=== PATIENT | female | born 1980 | race Asian ===

== ENCOUNTER 2017-04-06 22:16 | Inpatient (IN) | payer BC ==
[2017-04-06] MEDS ORDERED: Sodium Chloride 0.9% 2.5 ML Syringe FLUSH PRN (23:20)
[2017-04-06] MEDS ORDERED: ceFAZolin 1 GM in Premix Bag 1 BAG IV ONE (23:20)
[2017-04-06] MEDS ORDERED: Sodium Chloride 0.9% 10 ML Syringe FLUSH PRN (23:20)
[2017-04-06] MEDS ORDERED: Oxytocin/0.9 % Sodium Chloride 30 UNIT/500 ML BAG IV SCH (23:30)
[2017-04-06] MEDS ORDERED: Citric Acid/Sodium Citrate Solution 30 ML Cup PO SCH (23:30)
[2017-04-06] MEDS: Lactated Ringers 1,000 ML IV SCH (23:35)
[2017-04-07] MEDS: Lactated Ringers 1,000 ML IV SCH ×3 (00:20→10:49)
[2017-04-07] MEDS ORDERED: ePHEDrine 50 MG/ML SDV ONE (00:27)
[2017-04-07] MEDS ORDERED: Ondansetron 4 MG/2 ML SDV ONE (00:27)
[2017-04-07] MEDS ORDERED: Morphine PF 1 MG/ML Amp ONE (00:30)
[2017-04-07] MEDS ORDERED: Oxytocin/0.9 % Sodium Chloride 30 UNIT/500 ML BAG ONE (00:48)
[2017-04-07] MEDS ORDERED: Octyl 2-Cyanoacrylate 1 Tube ONE (01:33)
[2017-04-07] MEDS ORDERED: Ondansetron 4 MG/2 ML SDV IV PRN (01:58)
[2017-04-07] MEDS ORDERED: Acetaminophen/oxyCODONE 325-5 MG Tab PO PRN ×2 (01:58→02:20)
[2017-04-07] MEDS ORDERED: Bisacodyl 10 MG Supp RECTAL PRN (01:58)
[2017-04-07] MEDS ORDERED: diphenhydrAMINE 50 MG/ML SDV IVPUSH PRN ×2 (01:58→02:18)
[2017-04-07] MEDS ORDERED: Lanolin 100% Cream 7 GM Tube TOP PRN (01:58)
--- NOTE | 2017-04-07 01:58 | PCM.OPNOTE ---
- General Post-Op/Procedure Note Date of Surgery/Procedure: 04/07/17 Operative Procedure(s): repeat low transverse Findings: liveborn male 8/9 weight 3210 grams, large keloid scar removed, dense adhesions of the fascia. Pre Op Diagnosis: 39 weeks previous SROM Post-Op Diagnosis: Same Anesthesia Technique: Spinal Primary Surgeon: Kassy Patterson Anesthesia Provider: Sharla Higgins Radi Meat Clerk: Luz Marina Araiza Pathology: none Fluid Replacement, Intraop: 1,000 EBL in mLs: 600 Complications: None Known Condition: Good Free Text/Narrative:: Intake & Output 04/06/17 04/06/17 04/07/17 14:59 22:59 06:59 Output Total 200 Balance -200
[2017-04-07] MEDS ORDERED: Naloxone 0.4 MG/ML Syringe IVPUSH PRN (02:18)
[2017-04-07] MEDS ORDERED: fentaNYL 100 MCG/2 ML SDV IVPUSH PRN (02:20)
[2017-04-07] MEDS: Ketorolac 30 MG/ML SDV IVPUSH SCH ×4 (02:24→20:05)
--- NOTE | 2017-04-07 02:33 | PCM.POSTAN ---
POST ANESTHESIA ASSESSMENT - MENTAL STATUS Mental Status: Alert, Oriented - RESPIRATORY Respiratory Status: Respiratory Rate WNL, Airway Patent, O2 Saturation Stable - CARDIOVASCULAR CV Status: Pulse Rate WNL, Blood Pressure Stable - GASTROINTESTINAL GI Status: No Symptoms - PAIN Pain Score: 0 - POST OP HYDRATION Hydration Status: Adequate & Stable
[2017-04-07] MEDS: Nalbuphine 10 MG/1 ML Vial IVPUSH PRN ×2 (03:04→06:13)
--- NOTE | 2017-04-07 07:18 | OR ---
SURGEON: Kassy Patterson M.D. DATE OF PROCEDURE: 04/07/2017 PREOPERATIVE DIAGNOSES: 1. Thirty-nine week intrauterine . 2. Prior delivery, desires repeat. 3. Spontaneous rupture of membranes. POSTOPERATIVE DIAGNOSES: 1. Thirty-nine week intrauterine . 2. Prior delivery, desires repeat. 3. Spontaneous rupture of membranes. PROCEDURE: Repeat low-transverse section. ANESTHESIA: Spinal. ESTIMATED BLOOD LOSS: 600 mL. FLUIDS: 1000 mL crystalloid. FINDINGS: Live-born male, score of 8 and 9, weighing 3210 grams. There was a very large keloid scar that was removed. There was dense adhesions of the fascia to the rectus muscle and subcutaneous tissue. Normal-appearing tubes and ovaries. COMPLICATIONS: None known. DISPOSITION: Stable to recovery. BRIEF HISTORY: This is a 37-year-old female. She is -0-0-1. She presents at 39 weeks' gestation with spontaneous rupture of membranes. Clear fluid. Onset of contractions becoming more intense. Rates her pain at 5/10 to 7/10. Her prior delivery was for breech presentation. This has been uncomplicated. She is actually scheduled for an 8:00 a.m. section on 04/07/2017; however, due to the fact that her membranes have ruptured and she appears to be in active labor, a decision was made to proceed with an earlier section. Risks of were discussed including bleeding, infection; injury to bowel, bladder, blood vessels, ureters, or other organs; risk of thromboembolic event, risk of anesthesia. Understanding all of these risks, she does desire to proceed. DESCRIPTION OF PROCEDURE: With the patient in left tilt position, under adequate spinal analgesia, the abdomen was prepped with chlorhexidine and draped in usual fashion for abdominal surgery. SCDs were in place. Ancef 2 g had been given and an appropriate time- out was held. After documentation of adequate analgesia, the prior cicatrix was excised and the incision was carried through the subcutaneous tissue to the fascia, which was scored transversely in the midline. The fascia was very dense, adherent to the underlying rectus muscle and overlying subcutaneous tissue. I did extensive dissection with the scalpel and then with Espinal scissors and then sharp and blunt dissection to separate the rectus fascia from the rectus muscle. The rectus muscles were then sharply in the midline. A finger was used to enter the peritoneal cavity. There were no adhesions to the anterior abdominal wall. This incision was extended cephalad and caudad using sharp and blunt dissection. The Oj O retractor was then placed into the abdominal cavity. The visceroperitoneum over the lower uterine segment was incised and the bladder flap was pushed down below the field of dissection. A transverse curvilinear incision was made over the lower uterine segment with a scalpel. A finger was used to enter the amniotic cavity. Clear fluid was noted. The incision was extended using blunt dissection. The head was delivered via the uterine incision with fundal pressure without any difficulty, with subsequent delivery of the infant's shoulders and body without any difficulty. It was bulb suctioned by nose and mouth. The cord was clamped x2 and cut. The was handed to Dr. Youssef who was in attendance at delivery. The is a liveborn male, score 8 and 9, weighing 3210 grams. The cord blood was collected from the placenta for cord ABGs as well as routine cord blood sampling. The placenta was then removed by manual extraction. The cervix was opened with a ring forceps. The uterus was cleaned with a dry laparotomy tape. The uterine incision was closed with a running lock suture of 0 Polysorb, followed by an imbricating layer of 0 Polysorb. Pitocin had been given and there was excellent contraction of the uterus. The pelvis was then thoroughly inspected with findings as noted above. The uterine incision was again inspected. It was completely hemostatic. Therefore, the Oj O retractor was removed. A running lock suture was then utilized to reapproximate the rectus muscles in the midline. This was a running mattress suture of 0 Polysorb. The posterior aspect of the fascia was inspected and any areas of bleeding that were noted were cauterized. The fascial incision was closed with a running lock suture of 0 Polysorb. Subcutaneous tissue was copiously irrigated. Due to the extensive scarring, there was a large amount of oozing and careful meticulous cauterization was performed for complete hemostasis. Once complete hemostasis had been established, then the deep subcutaneous tissue was reapproximated with a running suture of 0 Polysorb and the skin was reapproximated with subcuticular suture of 2-0 Polysorb and Dermabond. Final sponge, needle, and instrument counts were reported as correct. There were no known complications. Mother is in recovery in good condition. [place] is in the nursery in good condition. CYNTHIA BENOIT /[id number]
[2017-04-07] MEDS: Docusate Sodium 100 MG Cap PO SCH ×2 (08:18→20:05)
--- NOTE | 2017-04-07 08:20 | PCM.PNPP ---
- General Info Date of Service: 04/07/17 Functional Status: Reports: Pain Controlled, Tolerating Diet, Ambulating, Urinating - Review of Systems General: Denies: Fever, Malaise HEENT: Denies: Headaches Pulmonary: Denies: Shortness of Breath, Pleuritic Chest Pain Cardiovascular: Denies: Chest Pain, Palpitations Gastrointestinal: Denies: Abdominal Pain Genitourinary: Denies: Dysuria, Flank Pain Skin: Reports: No Symptoms Neurological: Reports: No Symptoms Psychiatric: Reports: No Symptoms - General Info Date of Service: 04/07/17 - Patient Data Vital Signs - Most Recent: Last Vital Signs Temp 36.3 C 04/07/17 04:15 Pulse 83 04/07/17 07:00 Resp 16 04/07/17 07:00 BP 128/58 L 04/07/17 07:00 Pulse Ox 98 04/07/17 07:00 Weight - Most Recent: 158 lb I&O - Last 24 Hours: Intake & Output 04/06/17 04/07/17 04/07/17 22:59 06:59 14:59 Intake Total 1150 Output Total 290 Balance 860 Lab Results - Last 24 Hours: Laboratory Results - last 24 hr 04/06/17 04/06/17 04/06/17 Range/Units 22:30 23:35 23:35 WBC 9.03 (4.0-11.0) K/uL RBC 5.30 (4.30-5.90) M/uL Hgb 12.6 (12.0-16.0) g/dL Hct 38.1 (36.0-46.0) % MCV 71.9 L (80.0-98.0) fL MCH 23.8 L (27.0-32.0) pg MCHC 33.1 (31.0-37.0) g/dL RDW Std Deviation 39.9 (28.0-62.0) fl RDW Coeff of Diogenes 16 H (11.0-15.0) % Plt Count 261 (150-400) K/uL MPV 9.40 (7.40-12.00) fL Nucleated RBC % 0.0 /100WBC Nucleated RBCs # 0 K/uL Membrane Rupture POSITIVE Blood Type B NEGATIVE Antibody Screen NEGATIVE Screen (NEGATIVE) RhIG Candidate? Rhogam Indicated 04/07/17 Range/Units 02:43 WBC (4.0-11.0) K/uL RBC (4.30-5.90) M/uL Hgb (12.0-16.0) g/dL Hct (36.0-46.0) % MCV (80.0-98.0) fL MCH (27.0-32.0) pg MCHC (31.0-37.0) g/dL RDW Std Deviation (28.0-62.0) fl RDW Coeff of Diogenes (11.0-15.0) % Plt Count (150-400) K/uL MPV (7.40-12.00) fL Nucleated RBC % /100WBC Nucleated RBCs # K/uL Membrane Rupture Blood Type Antibody Screen Screen NEGATIVE (NEGATIVE) RhIG Candidate? YES Rhogam Indicated YES, BABY RH POS H Med Orders - Current: Current Medications Bisacodyl (Dulcolax) 10 mg RECTAL .ONCE PRN PRN Reason: Constipation Citric Acid/Sodium Citrate (Bicitra Solution) 30 ml PO .ONCE [facility] Last Admin: 04/07/17 00:42 Dose: 30 ml Diphenhydramine HCl (Benadryl) 25 mg IVPUSH Q6H PRN PRN Reason: Itching or Nausea Diphenhydramine HCl (Benadryl) 25 mg IVPUSH Q4H PRN PRN Reason: Itching Stop: 04/08/17 02:19 Docusate Sodium (Colace) 100 mg PO BID [facility] Emollient Ointment (Lansinoh Hpa) 0 gm TOP ASDIRECTED PRN PRN Reason: Sore Nipples Fentanyl (Sublimaze) 25 - 50 mcg IVPUSH Q30M PRN PRN Reason: Pain Lactated Ringer's (Ringers, Lactated) 1,000 mls @ 500 mls/hr IV .BOLUS [facility] Last Admin: 04/07/17 00:20 Dose: 999 mls/hr Oxytocin/Sodium Chloride (Oxytocin 30 Unit/500 Ml-Ns) 30 unit in 500 mls @ 250 mls/hr IV TITRATE [facility] Lactated Ringer's (Ringers, Lactated) 1,000 mls @ 125 mls/hr IV ASDIRECTED [facility] Last Admin: 04/07/17 03:15 Dose: 125 mls/hr Ibuprofen (Motrin) 800 mg PO Q8H PRN PRN Reason: mild pain or fever Ketorolac Tromethamine (Toradol) 30 mg IVPUSH Q6H [facility] Stop: 04/08/17 02:01 Last Admin: 04/07/17 02:24 Dose: 30 mg Nalbuphine HCl (Nubain) 5 mg IVPUSH Q3H PRN PRN Reason: Pruritis Stop: 04/08/17 02:19 Last Admin: 04/07/17 06:13 Dose: 5 mg Naloxone HCl (Narcan) 0.1 mg IVPUSH ONETIME PRN PRN Reason: Other Stop: 04/08/17 02:19 Ondansetron HCl (Zofran) 4 mg IV Q4H PRN PRN Reason: Nausea/Vomiting Oxycodone/Acetaminophen (Percocet 325-5 Mg) 1 tab PO Q4H PRN PRN Reason: Pain (moderate 4-6) Oxycodone/Acetaminophen (Percocet 325-5 Mg) 2 tab PO Q4H PRN PRN Reason: Pain (moderate 4-6) Oxycodone/Acetaminophen (Percocet 325-5 Mg) 1 - 2 tab PO Q6H PRN PRN Reason: Pain Stop: 04/09/17 14:00 Sodium Chloride (Saline Flush) 10 ml FLUSH ASDIRECTED PRN PRN Reason: Keep Vein Open Sodium Chloride (Saline Flush) 2.5 ml FLUSH ASDIRECTED PRN PRN Reason: Keep Vein Open Discontinued Medications Ephedrine Sulfate (Ephedrine Sulfate) Confirm Administered Dose 50 mg .ROUTE .STK-MED ONE Stop: 04/07/17 00:28 Cefazolin Sodium/Dextrose 1 gm (/ Premix) 50 mls @ 100 mls/hr IV ONETIME ONE Stop: 04/06/17 23:49 Oxytocin/Sodium Chloride (Oxytocin 30 Unit/500 Ml-Ns) Confirm Administered Dose 30 unit in 500 mls @ as directed .ROUTE .STK-MED ONE Stop: 04/07/17 00:49 Morphine Sulfate (Duramorph Pf) Confirm Administered Dose 1 mg .ROUTE .STK-MED ONE Stop: 04/07/17 00:31 Octyl Cyanoacrylate (Dermabond Advance) Confirm Administered Dose 1 applic .ROUTE .STK-MED ONE Stop: 04/07/17 01:34 Ondansetron HCl (Zofran) Confirm Administered Dose 4 mg .ROUTE .STK-MED ONE Stop: 04/07/17 00:28 - Infant Interaction Disposition, : [place] in Room with Family Infant Interaction: Holding Infant Infant Feeding: Attempted ; Nursed Fair/Poor Support Person: - Recovery Exam Fundal Tone: Firm Fundal Level: 1 Fingerbreadths Below Umbilicus Fundal Placement: Midline Lochia Amount: Scant Lochia Color: Rubra/Red Episiotomy/Laceration: None Bladder Status: Indwelling Catheter in Place - Exam General: Alert, Oriented HEENT: Pupils Equal Neck: Supple Lungs: Clear to Auscultation, Normal Respiratory Effort Cardiovascular: Regular Rate, Regular Rhythm GI/Abdominal Exam: Normal Bowel Sounds Skin: Warm Wound/Incisions: Dressing Dry and Intact Psy/Mental Status: Alert, Normal Affect, Normal Mood - Problem List & Annotations (1) delivery delivered SNOMED Code(s): 613549646 Code(s): O82 - ENCOUNTER FOR DELIVERY WITHOUT INDICATION Status: Acute Current Visit: Yes - Problem List Review Problem List Initiated/Reviewed/Updated: Yes - Assessment Assessment:: PPD#0, s/p RLTCS, emergency for SROM, stable and afebrile - Plan Plan:: Pain is controlled with Duramorph Continue routine care
[2017-04-08] MEDS: Ketorolac 30 MG/ML SDV IVPUSH SCH (02:08)
--- NOTE | 2017-04-08 07:27 | PCM48HPAN ---
Post Anesthesia Note - EVALUATION WITHIN 48HRS OF ANESTHETIC Vital Signs in Normal Range: Yes Patient Participated in Evaluation: Yes Respiratory Function Stable: Yes Airway Patent: Yes Cardiovascular Function Stable: Yes Hydration Status Stable: Yes Pain Control Satisfactory: Yes Nausea and Vomiting Control Satisfactory: Yes Mental Status Recovered: Yes
[2017-04-08] MEDS: Docusate Sodium 100 MG Cap PO SCH ×2 (08:37→21:07)
[2017-04-08] MEDS: Ibuprofen 800 MG Tab PO PRN ×2 (08:57→18:18)
--- NOTE | 2017-04-08 11:00 | PCM.PNPP ---
- General Info Date of Service: 04/08/17 Functional Status: Reports: Pain Controlled, Tolerating Diet, Ambulating, Urinating - Review of Systems General: Denies: Fever, Weakness, Malaise, Chills HEENT: Denies: Headaches, Visual Changes Pulmonary: Denies: Shortness of Breath, Pleuritic Chest Pain Cardiovascular: Denies: Chest Pain, Palpitations, Dyspnea on Exertion Gastrointestinal: Denies: Abdominal Pain Genitourinary: Denies: Dysuria, Flank Pain Neurological: Denies: Confusion Psychiatric: Denies: Depression, Mood Lability, Anxiety - General Info Date of Service: 04/08/17 - Patient Data Vital Signs - Most Recent: Last Vital Signs Temp 36.6 C 04/08/17 09:27 Pulse 91 04/08/17 09:27 Resp 20 04/08/17 09:27 BP 145/78 H 04/08/17 09:27 Pulse Ox 99 04/08/17 09:27 Weight - Most Recent: 158 lb I&O - Last 24 Hours: Intake & Output 04/07/17 04/08/17 04/08/17 22:59 06:59 14:59 Intake Total 2900 Output Total 3900 Balance -1000 Lab Results - Last 24 Hours: Laboratory Results - last 24 hr 04/07/17 04/08/17 Range/Units 02:43 04:44 Hgb 8.6 L (12.0-16.0) g/dL Hct 26.2 L (36.0-46.0) % Screen NEGATIVE (NEGATIVE) RhIG Candidate? YES Rhogam Indicated YES, BABY RH POS H Med Orders - Current: Current Medications Bisacodyl (Dulcolax) 10 mg RECTAL .ONCE PRN PRN Reason: Constipation Citric Acid/Sodium Citrate (Bicitra Solution) 30 ml PO .ONCE [facility] Last Admin: 04/07/17 00:42 Dose: 30 ml Diphenhydramine HCl (Benadryl) 25 mg IVPUSH Q6H PRN PRN Reason: Itching or Nausea Docusate Sodium (Colace) 100 mg PO BID [facility] Last Admin: 04/08/17 08:37 Dose: 100 mg Emollient Ointment (Lansinoh Hpa) 0 gm TOP ASDIRECTED PRN PRN Reason: Sore Nipples Fentanyl (Sublimaze) 25 - 50 mcg IVPUSH Q30M PRN PRN Reason: Pain Lactated Ringer's (Ringers, Lactated) 1,000 mls @ 500 mls/hr IV .BOLUS [facility] Last Admin: 04/07/17 00:20 Dose: 999 mls/hr Oxytocin/Sodium Chloride (Oxytocin 30 Unit/500 Ml-Ns) 30 unit in 500 mls @ 250 mls/hr IV TITRATE [facility] Lactated Ringer's (Ringers, Lactated) 1,000 mls @ 125 mls/hr IV ASDIRECTED [facility] Last Admin: 04/07/17 10:49 Dose: 125 mls/hr Ibuprofen (Motrin) 800 mg PO Q8H PRN PRN Reason: mild pain or fever Last Admin: 04/08/17 08:57 Dose: 800 mg Ondansetron HCl (Zofran) 4 mg IV Q4H PRN PRN Reason: Nausea/Vomiting Oxycodone/Acetaminophen (Percocet 325-5 Mg) 1 tab PO Q4H PRN PRN Reason: Pain (moderate 4-6) Oxycodone/Acetaminophen (Percocet 325-5 Mg) 2 tab PO Q4H PRN PRN Reason: Pain (moderate 4-6) Oxycodone/Acetaminophen (Percocet 325-5 Mg) 1 - 2 tab PO Q6H PRN PRN Reason: Pain Stop: 04/09/17 14:00 Sodium Chloride (Saline Flush) 10 ml FLUSH ASDIRECTED PRN PRN Reason: Keep Vein Open Sodium Chloride (Saline Flush) 2.5 ml FLUSH ASDIRECTED PRN PRN Reason: Keep Vein Open Discontinued Medications Diphenhydramine HCl (Benadryl) 25 mg IVPUSH Q4H PRN PRN Reason: Itching Stop: 04/08/17 02:19 Ephedrine Sulfate (Ephedrine Sulfate) Confirm Administered Dose 50 mg .ROUTE .STK-MED ONE Stop: 04/07/17 00:28 Cefazolin Sodium/Dextrose 1 gm (/ Premix) 50 mls @ 100 mls/hr IV ONETIME ONE Stop: 04/06/17 23:49 Last Admin: 04/07/17 22:04 Dose: Not Given Oxytocin/Sodium Chloride (Oxytocin 30 Unit/500 Ml-Ns) Confirm Administered Dose 30 unit in 500 mls @ as directed .ROUTE .STK-MED ONE Stop: 04/07/17 00:49 Last Admin: 04/07/17 22:05 Dose: Not Given Ketorolac Tromethamine (Toradol) 30 mg IVPUSH Q6H [facility] Stop: 04/08/17 02:01 Last Admin: 04/08/17 02:08 Dose: 30 mg Morphine Sulfate (Duramorph Pf) Confirm Administered Dose 1 mg .ROUTE .STK-MED ONE Stop: 04/07/17 00:31 Nalbuphine HCl (Nubain) 5 mg IVPUSH Q3H PRN PRN Reason: Pruritis Stop: 04/08/17 02:19 Last Admin: 04/07/17 06:13 Dose: 5 mg Naloxone HCl (Narcan) 0.1 mg IVPUSH ONETIME PRN PRN Reason: Other Stop: 04/08/17 02:19 Octyl Cyanoacrylate (Dermabond Advance) Confirm Administered Dose 1 applic .ROUTE .STK-MED ONE Stop: 04/07/17 01:34 Ondansetron HCl (Zofran) Confirm Administered Dose 4 mg .ROUTE .STK-MED ONE Stop: 04/07/17 00:28 - Infant Interaction Disposition, : [place] in Room with Family Infant Interaction: Holding Infant Feeding: Breastfed ; Nursed Well Support Person: - Recovery Exam Fundal Tone: Firm Fundal Level: 1 Fingerbreadths Below Umbilicus Fundal Placement: Midline Lochia Amount: Scant Lochia Color: Rubra/Red Perineum Description: Intact, Minimal Bruising/Swelling Episiotomy/Laceration: None Bladder Status: Voiding Urinary Elimination: Voided - Exam General: Alert, Oriented HEENT: Pupils Equal Lungs: Clear to Auscultation, Normal Respiratory Effort Cardiovascular: Regular Rate, Regular Rhythm GI/Abdominal Exam: Normal Bowel Sounds, Soft Extremities: Non-Tender, Pedal Edema Wound/Incisions: Healing Well Psy/Mental Status: Alert, Normal Affect, Normal Mood - Problem List & Annotations (1) delivery delivered SNOMED Code(s): 567397339 Code(s): O82 - ENCOUNTER FOR DELIVERY WITHOUT INDICATION Status: Acute Current Visit: Yes - Problem List Review Problem List Initiated/Reviewed/Updated: Yes - Assessment Assessment:: PPD#1, s/p RLTCS, emergency for SROM, stable and afebrile Hgb 8.6g/dl, asymptomatic - Plan Plan:: Continue current care and aim for discharge tomorrow
[2017-04-08] MEDS: Acetaminophen/oxyCODONE 325-5 MG Tab PO PRN (23:10)
[2017-04-09] MEDS: Ibuprofen 800 MG Tab PO PRN ×2 (01:24→12:13)
[2017-04-09] MEDS: Docusate Sodium 100 MG Cap PO SCH (08:54)
[2017-04-09] MEDS: Acetaminophen/oxyCODONE 325-5 MG Tab PO PRN (08:54)
--- NOTE | 2017-04-09 09:04 | PCM.PNPP ---
- General Info Date of Service: 04/09/17 Functional Status: Reports: Pain Controlled, Tolerating Diet, Ambulating, Urinating - Review of Systems General: Denies: Fever, Malaise, Chills HEENT: Denies: Headaches Pulmonary: Denies: Shortness of Breath, Pleuritic Chest Pain Cardiovascular: Denies: Chest Pain, Palpitations, Dyspnea on Exertion Gastrointestinal: Denies: Abdominal Pain Genitourinary: Denies: Incontinence, Flank Pain Psychiatric: Denies: Confusion, Mood Lability, Anxiety - General Info Date of Service: 04/09/17 - Patient Data Vital Signs - Most Recent: Last Vital Signs Temp 36.4 C 04/09/17 07:54 Pulse 83 04/09/17 07:54 Resp 16 04/09/17 07:54 BP 108/72 04/09/17 07:54 Pulse Ox 97 04/09/17 07:54 Weight - Most Recent: 158 lb Med Orders - Current: Current Medications Bisacodyl (Dulcolax) 10 mg RECTAL .ONCE PRN PRN Reason: Constipation Citric Acid/Sodium Citrate (Bicitra Solution) 30 ml PO .ONCE [facility] Last Admin: 04/07/17 00:42 Dose: 30 ml Diphenhydramine HCl (Benadryl) 25 mg IVPUSH Q6H PRN PRN Reason: Itching or Nausea Docusate Sodium (Colace) 100 mg PO BID [facility] Last Admin: 04/08/17 21:07 Dose: 100 mg Emollient Ointment (Lansinoh Hpa) 0 gm TOP ASDIRECTED PRN PRN Reason: Sore Nipples Fentanyl (Sublimaze) 25 - 50 mcg IVPUSH Q30M PRN PRN Reason: Pain Lactated Ringer's (Ringers, Lactated) 1,000 mls @ 500 mls/hr IV .BOLUS [facility] Last Admin: 04/07/17 00:20 Dose: 999 mls/hr Oxytocin/Sodium Chloride (Oxytocin 30 Unit/500 Ml-Ns) 30 unit in 500 mls @ 250 mls/hr IV TITRATE [facility] Lactated Ringer's (Ringers, Lactated) 1,000 mls @ 125 mls/hr IV ASDIRECTED [facility] Last Admin: 04/07/17 10:49 Dose: 125 mls/hr Ibuprofen (Motrin) 800 mg PO Q8H PRN PRN Reason: mild pain or fever Last Admin: 04/09/17 01:24 Dose: 800 mg Ondansetron HCl (Zofran) 4 mg IV Q4H PRN PRN Reason: Nausea/Vomiting Oxycodone/Acetaminophen (Percocet 325-5 Mg) 1 tab PO Q4H PRN PRN Reason: Pain (moderate 4-6) Last Admin: 04/08/17 23:10 Dose: 1 tab Oxycodone/Acetaminophen (Percocet 325-5 Mg) 2 tab PO Q4H PRN PRN Reason: Pain (moderate 4-6) Oxycodone/Acetaminophen (Percocet 325-5 Mg) 1 - 2 tab PO Q6H PRN PRN Reason: Pain Stop: 04/09/17 14:00 Sodium Chloride (Saline Flush) 10 ml FLUSH ASDIRECTED PRN PRN Reason: Keep Vein Open Sodium Chloride (Saline Flush) 2.5 ml FLUSH ASDIRECTED PRN PRN Reason: Keep Vein Open Discontinued Medications Diphenhydramine HCl (Benadryl) 25 mg IVPUSH Q4H PRN PRN Reason: Itching Stop: 04/08/17 02:19 Ephedrine Sulfate (Ephedrine Sulfate) Confirm Administered Dose 50 mg .ROUTE .STK-MED ONE Stop: 04/07/17 00:28 Cefazolin Sodium/Dextrose 1 gm (/ Premix) 50 mls @ 100 mls/hr IV ONETIME ONE Stop: 04/06/17 23:49 Last Admin: 04/07/17 22:04 Dose: Not Given Oxytocin/Sodium Chloride (Oxytocin 30 Unit/500 Ml-Ns) Confirm Administered Dose 30 unit in 500 mls @ as directed .ROUTE .STK-MED ONE Stop: 04/07/17 00:49 Last Admin: 04/07/17 22:05 Dose: Not Given Ketorolac Tromethamine (Toradol) 30 mg IVPUSH Q6H [facility] Stop: 04/08/17 02:01 Last Admin: 04/08/17 02:08 Dose: 30 mg Morphine Sulfate (Duramorph Pf) Confirm Administered Dose 1 mg .ROUTE .STK-MED ONE Stop: 04/07/17 00:31 Nalbuphine HCl (Nubain) 5 mg IVPUSH Q3H PRN PRN Reason: Pruritis Stop: 04/08/17 02:19 Last Admin: 04/07/17 06:13 Dose: 5 mg Naloxone HCl (Narcan) 0.1 mg IVPUSH ONETIME PRN PRN Reason: Other Stop: 04/08/17 02:19 Octyl Cyanoacrylate (Dermabond Advance) Confirm Administered Dose 1 applic .ROUTE .STK-MED ONE Stop: 04/07/17 01:34 Ondansetron HCl (Zofran) Confirm Administered Dose 4 mg .ROUTE .STK-MED ONE Stop: 04/07/17 00:28 - Interaction Infant Disposition, : [place] in Room with Family Infant Interaction: Holding Feeding: Breastfed Infant; Nursed Well Support Person: - Recovery Exam Fundal Tone: Firm Fundal Level: 1 Fingerbreadths Below Umbilicus Fundal Placement: Midline Lochia Amount: Scant Lochia Color: Rubra/Red Perineum Description: Intact, Minimal Bruising/Swelling Episiotomy/Laceration: None Bladder Status: Voiding Urinary Elimination: Voided - Exam General: Alert, Oriented Lungs: Clear to Auscultation Cardiovascular: Regular Rate, Regular Rhythm Extremities: Non-Tender, Pedal Edema Wound/Incisions: Healing Well Psy/Mental Status: Alert, Normal Affect, Normal Mood - Problem List & Annotations (1) delivery delivered SNOMED Code(s): 890164468 Code(s): O82 - ENCOUNTER FOR DELIVERY WITHOUT INDICATION Status: Acute Current Visit: Yes - Problem List Review Problem List Initiated/Reviewed/Updated: Yes - My Orders Last 24 Hours: My Active Orders 04/08/17 11:27 Ready for Discharge [RC] PER UNIT ROUTINE - Assessment Assessment:: PPD#2, s/p RLTCS, emergency for SROM, stable and afebrile Clinically stable for discharge - Plan Plan:: Discharge instructions reviewed Nothing in the vagina for 6 weeks Incision care reviewed Bleeding and infection precautions blues and depression S/S reviewed Continue PNV and Iron supplements Follow up in 2 and 6 weeks
== END 2017-04-09 12:45 | disposition home or self-care (01) | DRG 540 ==
LOC: MW.OBCHECK 22:16 → MW.OB 22:19 → MW.OBCHECK 23:21 → MW.OB 23:21
PROVIDERS: ADMIT Obstetrics & Gynecology; ATTEND Obstetrics & Gynecology
PROC: 10D00Z1 Extraction of Products of Conception, Low, Open Approach (ICD-10-PCS; principal; 2017-04-06)
DX: O42.02 Full-term premature rupture of membranes, onset of labor within 24 hours of rupture (principal); O34.211 Maternal care for low transverse scar from previous cesarean delivery; N85.8 Other specified noninflammatory disorders of uterus; Z3A.39 39 weeks gestation of pregnancy; Z37.0 Single live birth
CPT/HCPCS: 01961; 36415; 59025; 84112; 85014; 85018; 85027; 85460; 86850; 86900; 86901; A9270-GY; J1885; J2274; J2300; J2405; J2790; J7120